=== PATIENT | female | born 1975 | race Caucasian/White ===

== ENCOUNTER → 2023-02-23 15:06 | Outpatient (BNVA) | payer OTHER, SELFPAY | PROVIDERS: Visit Provider Internal Medicine | DX: S81.012A Laceration without foreign body, left knee, initial encounter (principal); W25.XXXA Contact with sharp glass, initial encounter | CPT/HCPCS: 12002; 99203 ==

== ENCOUNTER → 2023-02-25 13:03 | Outpatient (BNVA) | payer OTHER, SELFPAY | PROVIDERS: Visit Provider Physician Assistant Medical | DX: S81.012A Laceration without foreign body, left knee, initial encounter (principal); W25.XXXA Contact with sharp glass, initial encounter | CPT/HCPCS: 99213 ==

== ENCOUNTER → 2023-03-04 14:30 | Outpatient (BNVA) | payer OTHER, SELFPAY | PROVIDERS: Visit Provider Physician Assistant Medical | DX: S81.012A Laceration without foreign body, left knee, initial encounter (principal); W22.8XXA Striking against or struck by other objects, initial encounter | CPT/HCPCS: 99212; 99213 ==